=== PATIENT | male | born 2000 | race African-American/Black ===

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

== ENCOUNTER 2019-10-24 21:32 | Emergency (ER) | payer OTHER ==
[2019-10-24 21:49] VITALS: BP 131/75
[2019-10-24] MEDS ORDERED: Lidocaine 1% MPF ** 5 ML VIAL INJ ONE (21:56)
--- NOTE | 2019-10-24 22:36 | UC ---
Laceration HPI - HPI Summary HPI Summary: The patient is a 19-year-old male that sustained a laceration to his chin and while playing basketball. He denies any neck pain. He denies any jaw pain or dental injury. His teeth feel intact. He denies any chest pain or shortness of breath. He also is complaining of a sore throat. He states the sore throat started about 3 weeks ago and was severe the onset. He may have been febrile initially. He still has some intermittent pain when swallowing. - History Of Current Complaint Chief Complaint: UCLaceration Stated Complaint: CHIN LACERATION Time Seen by Provider: 10/24/19 21:53 Hx Obtained From: Patient Laceration Location: Face - chin Mechanism Of Injury: Blunt Trauma Onset/Duration: Sudden Onset Severity: Mild Pain Intensity: 3 Pain Scale Used: 0-10 Numeric Aggravating Factors: Nothing Head: 1 - laceration - Allergies/Home Medications Allergies/Adverse Reactions: Allergies Allergy/AdvReac Type Severity Reaction Status Date / Time azithromycin Allergy Hives Verified 10/24/19 21:50 sunflower seed Allergy Anaphylatic Verified 10/24/19 21:50 Shock Home Medications: Home Medications NK [No Home Medications Reported] 10/24/19 [History Confirmed 10/24/19] PMH/Surg Hx/FS Hx/Imm Hx Previously Healthy: Yes - Surgical History Surgical History: None - Family History Known Family History: Negative: Diabetes - Social History Alcohol Use: Daily Alcohol Amount: 10/day Substance Use Type: None Smoking Status (MU): Current Some Day Smoker - Immunization History Most Recent Influenza Vaccination: none Review of Systems All Other Systems Reviewed And Are Negative: Yes Constitutional: Positive: Negative Skin: Positive: Other - see hpi Eyes: Positive: Negative ENT: Positive: Sore Throat Respiratory: Positive: Negative Cardiovascular: Positive: Negative Gastrointestinal: Positive: Negative Genitourinary: Positive: Negative Motor: Positive: Negative Neurovascular: Positive: Negative Musculoskeletal: Positive: Negative Neurological/Mental Status: Positive: Negative Psychological: Positive: Negative Physical Exam Triage Information Reviewed: Yes Appearance: Well-Appearing, No Pain Distress, Well-Nourished Vital Signs: Initial Vital Signs Temp 98.2 F 10/24/19 21:44 Pulse 82 10/24/19 21:44 Resp 16 10/24/19 21:44 BP 131/75 10/24/19 21:44 Pulse Ox 98 10/24/19 21:44 Vital Signs Reviewed: Yes Eyes: Positive: Conjunctiva Clear ENT: Positive: Hearing grossly normal, Pharyngeal erythema, Tonsillar swelling, Uvula midline. Negative: Tonsillar exudate, Trismus, Muffled voice Dental Exam: Normal Neck: Positive: Supple, Nontender, Enlarged Nodes @ - left ant cerv LN Respiratory: Positive: Lungs clear, Normal breath sounds, No respiratory distress, No accessory muscle use Cardiovascular: Positive: RRR, No Murmur Bowel Sounds: Positive: Present Neurological: Positive: Alert Psychological Exam: Normal Skin Exam: Other - chin laceration Laceration Repair - Laceration Repair 1 Description: Linear Laceration Size After Repair: Length (cm) - 1.8cm, Width (mm) - 5, Depth (mm) - 2 Anesthesia Used: 1.0% Lido Cleansing Completed Via Routine Prep: Yes Irrigation With Pressure Irrigation Device: Yes Closure Material: Sutures Closure Method: Multilayer Suture Of: Skin - 7 6-0 nylon, SQ - 3 5-0 vicryl Suture Type: Nylon Diagnostics - Laboratory Lab Results: strep neg Laceration Course/Dx - Diagnosis Provider Diagnosis: Chin laceration, Pharyngitis Discharge ED - Sign-Out/Discharge Documenting (check all that apply): Patient Departure All imaging exams completed and their final reports reviewed: No Studies - Discharge Plan Condition: Stable Disposition: HOME Patient Education Materials: Laceration (ED) Referrals: [facility] - Zeyad DILLON [Z.BUSINESS, APPLICATION, OTHER] - 5 Days (recheck in 5-7 days for suture removal) Additional Instructions: take it easy no vigorous exercise ice pack tonight starting tomorrow gently clean twice daily with soap and water apply thin film of ointment (I like aquaphor healing ointment) tyelnol or advil for pain strep test was negative - Billing Disposition and Condition Condition: STABLE Disposition: Home
== END 2019-10-24 23:07 | disposition home or self-care (01) ==
LOC: UCEAST 21:32
DX: S01.81XA Laceration without foreign body of other part of head, initial encounter (principal); X58.XXXA Exposure to other specified factors, initial encounter; Y93.67 Activity, basketball; Y92.9 Unspecified place or not applicable; J02.9 Acute pharyngitis, unspecified; Z88.1 Allergy status to other antibiotic agents; Z91.018 Allergy to other foods; Z72.0 Tobacco use
CPT/HCPCS: 12011; 12051; 87651; 99211; G0463